=== PATIENT | female | born 1995 | race Two or more races ===

== ENCOUNTER 2021-02-18 12:04 | Emergency (ER) | payer OTHER ==
[~2021-02-18] VITALS: Ht 152.4 cm; Wt 45.5 kg
[2021-02-18 13:33] VITALS: BP 111/78
== END 2021-02-18 13:51 | disposition home or self-care (01) ==
LOC: EMS 12:08
DX: Z03.89 Encounter for observation for other suspected diseases and conditions ruled out (principal)
CPT/HCPCS: 99283; 71046; 71046-TC